=== PATIENT | female | born 1940 | race Caucasian/White ===

== ENCOUNTER 2025-06-16 17:26 | Emergency (ER) | payer MEDICARE, OTHER | END 2025-06-16 18:10 | disposition home or self-care (01) | LOC: JD.ED 17:26 | DX: T16.1XXA Foreign body in right ear, initial encounter (principal); W44.8XXA Other foreign body entering into or through a natural orifice, initial encounter; Y93.89 Activity, other specified | CPT/HCPCS: 69200; 99282 ==